=== PATIENT | male | born 1990 | race Caucasian/White ===

== ENCOUNTER 2016-08-12 05:26 | Day surgery (SDC) | payer BC, OTHER ==
[~2016-08-12] VITALS: Ht 185.4 cm; Wt 131.8 kg
[2016-08-12] MEDS ORDERED: ONDANSETRON 4MG/2ML VIAL (J2405) As Ordered ONE ×2 (06:16→15:29)
[2016-08-12] MEDS ORDERED: ZOSYN 3.375 GM VIAL (J2543) As Ordered ONE ×2 (06:16→06:17)
[2016-08-12] MEDS ORDERED: MORPHINE 4 MG/ML 1ML SYRINGE As Ordered ONE ×3 (06:16→08:34)
[2016-08-12] MEDS ORDERED: GASTROGRAFIN SOLUTION 30ML (Q9963) As Ordered ONE (06:18)
[2016-08-12 07:01] LABS: BASO # 0.2 K/mm3 (0.0-0.2); BASO % 1.6 % (0.0-1.0); EOS # 0.1 K/mm3 (0.0-0.50); EOS % 0.8 % (0.0-3.0); LARGE UNSTAINED CELL # 0.2 K/mm3 (0.0-0.4); LARGE UNSTAINED CELL % 1.7 % (0.0-4.0); LYMPH # 1.5 K/mm3 (1.5-6.5); LYMPH % 11.2 % (24.0-44.0); MEAN CORPUSCULAR HGB CONC 31.9 g/dl (32.0-36.5); MEAN CORPUSCULAR VOLUME 90.7 fl (80.0-96.0); MONO # 0.7 K/mm3 (0.0-0.8); MONO % 5.8 % (0.0-5.0); NEUTROPHILS # 9.2 K/mm3 (1.8-7.7); NEUTROPHILS % 78.9 % (36.0-66.0); PLATELET COUNT, AUTOMATED 223 k/mm3 (150-450); RED CELL DISTRIBUTION WIDTH 14.7 % (11.5-14.5); WHITE BLOOD COUNT 11.6 K/mm3 (4.0-10.0)
[2016-08-12] MEDS ORDERED: ISOVUE-370 76% 100ML VIAL (Q9967) As Ordered ONE (07:54)
[2016-08-12 08:45] LABS: ANION GAP 9 MEQ/L (8-16); BLOOD UREA NITROGEN 12 MG/DL (7-18); CARBON DIOXIDE LEVEL 27 MEQ/L (21-32); CHLORIDE LEVEL 102 MEQ/L (98-107); CREATININE FOR GFR 1.24 MG/DL (0.70-1.30); GLOMERULAR FILTRATION RATE > 60.0 (>60); GLUCOSE, FASTING 91 MG/DL (70-105); POTASSIUM SERUM 3.9 MEQ/L (3.5-5.1); SODIUM LEVEL 138 MEQ/L (136-145)
--- NOTE | 2016-08-12 09:12 | REP ---
CT ABDOMEN AND PELVIS WITH IV AND ORAL CONTRAST: HISTORY: Appendicitis. CT contrast dose: 100 mL of Isovue 370 is administered intravenously. Comparison study is a CT scan from April 22, 2008. 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 The lung bases are clear. No pleural effusion is seen. No infiltrate is noted. Liver and spleen are normal in size and homogeneous in texture. No adrenal lesion is seen on either side. The gallbladder and the pancreas are unremarkable. The kidneys enhance symmetrically and are morphologically intact. Normal caliber aorta. Tiny accessory splenule is seen adjacent to the tail of the pancreas. The appendix is abnormal. It is mildly dilated measuring 13 mm in diameter. It contains two or three concretions consistent with appendicoliths including one just beyond its origin from the cecum. There is mild periappendiceal stranding. No free air, abscess or fluid is seen. The changes are compatible with early acute appendicitis. The appendix measured 5 mm in diameter om the 2007 prior study. Urinary bladder, seminal vesicles and prostate are unremarkable. No abdominal wall defect is seen. No bony destructive lesion is seen. There is no evidence of free intraperitoneal air. IMPRESSION: Dilated retrocecal appendix containing two to three appendicoliths with mild periappendiceal stranding consistent with early acute appendicitis. No abscess or free air is seen. Mild ileus pattern in the bowel gas. Otherwise unremarkable CT study abdomen and pelvis. Signed by Rasheed Astudillo MD 08/12/2016 09:24 A
[2016-08-12] MEDS ORDERED: METOCLOPRAMIDE INJ 10MG/2ML VIAL (J2765) IV PRN (09:15)
[2016-08-12] MEDS ORDERED: ONDANSETRON 4MG/2ML VIAL (J2405) IV PRN ×2 (09:15→16:45)
[2016-08-12] MEDS ORDERED: KETOROLAC 30 MG/ML VIAL (J1885) IV PRN (09:15)
[2016-08-12] MEDS ORDERED: LR 1,000 ML IV SCH ×2 (09:15→16:45)
[2016-08-12] MEDS ORDERED: PANTOPRAZOLE 40MG INJ (PROTONIX) (C9113) As Ordered ONE (09:27)
[2016-08-12] MEDS ORDERED: MORPHINE 2 MG/ML 1ML SYRINGE As Ordered ONE (09:42)
[2016-08-12] MEDS ORDERED: KETOROLAC 30 MG/ML VIAL (J1885) As Ordered ONE (09:42)
--- NOTE | 2016-08-12 10:47 | EDDOCDS ---
Physician Documentation [facility] Name: Kai Valencia Age: 25 yrs Sex: Male : 1990 Arrival Date: 08/12/2016 Time: : Bed 11 Private MD: Disposition: 08/12/16 08:44 Hospitalization ordered by Sanjay Zhong for Inpatient Admission. Preliminary diagnosis is Acute appendicitis. - Bed requested for M PED. - Status is Inpatient Admission. kr3 - Condition is Stable. - Problem is new. - Symptoms are unchanged. HPI: 08/12 06:19 This 25 yrs old Male presents to ER via Walkin/Carried/Asstd with complaints pc of Abdominal Pain. 06:19 The history is obtained from the patient. The patient presents with abdominal pain. The pc symptoms began gradually yesterday, He had a loss of appetite yesterday but no other symptoms. He awoke at 1am with periumbilical pain and thought he needed to move his bowels. 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 He is nauseated. He denies any fevers or chills, Resp or symptoms. At its worst, the symptoms were a 7 out of 10. In the emergency department, the symptoms are a 7 out of 10. The symptoms are aggravated by movement, walking, coughing. The symptoms are alleviated by remaining still. The patient has not experienced similar symptoms in the past. The patient has not recently seen a physician. Historical: - Allergies: No known drug Allergies; - Home Meds: 1. none - PMHx: none; - PSHx: Left Shoulder Labrum Repair; - The history from nurses notes was reviewed: and elements of the historical information I have obtained differs from that reported to nursing. - Social history: Smoking status: Patient states was never smoker of tobacco. No barriers to communication noted, The patient speaks fluent Belgian, Speaks appropriately for age. - : The pt / caregiver states he / she is not on anticoagulants. Home medication list is obtained from the patient. - Hospitalizations: : No recent hospitalization is reported. - Exposure Risk Screening:: None identified. - Immunization history:: All immunizations up-to-date. - Family history: Not pertinent. - Social history:: the patient is a non-smoker, the patient drinks alcohol. ROS: 06:23 All systems are negative except if listed. The constitutional, cardiovascular, pc respiratory and neurological components are also addressed in the HPI. Exam: 06:23 General Appearance: alert, no acute distress. pc 06:23 ENT: ear, nose and throat normal, pharynx normal. 06:23 Neck: The exam reveals no acute abnormalities. ROM is normal and painless. No nuchal rigidity is noted.. 06:23 Respiratory: no respiratory distress, normal breath sounds. 06:23 Cardiovascular: regular pulse rate, regular heart rhythm, normal heart sounds, equal and full pulses bilaterally. 06:23 Abdomen: soft, severe tenderness in the right lower quadrant, with rebound, voluntary guarding is not appreciated, involuntary guarding is elicited in the right upper quadrant and right lower quadrant. 06:23 Back: normal inspection. 06:23 Skin: skin color is normal, warm, dry. 06:23 Extremities: The extremities have a grossly normal appearance, are non-tender, without acute ROM abnormalities. 06:23 Neuro: oriented x 3, cranial nerves normal as tested, no motor deficits, no sensory deficits. 06:23 Psych: mood is normal. Vital Signs: 05:31 BP 186 / 94 RA Sitting (auto/); Pulse 103; Resp 18 S; Temp 98.3(TE); Pulse Ox 99% on af2 R/A; Weight 131.54 kg / 290 lbs (R); Height 6 ft. 1 in. (185.42 cm) (R); Pain 7/10; 07:08 BP 144 / 78; Pulse 88; Resp 16; Temp 96.8(O); Pulse Ox 96% on R/A; Pain 5/10; kr3 09:48 BP 150 / 70; Pulse 94; Resp 16; Pulse Ox 96% on R/A; Pain 8/10; kr3 10:23 BP 162 / 74; Pulse 88; Resp 16; Temp 99.4(O); Pulse Ox 99% on R/A; Pain 0/10; kr3 10:23 Pain 0/10; kr3 05:31 Body Mass Index 38.26 (131.54 kg, 185.42 cm) af2 MDM: 06:08 IV Saline Lock ordered. pc 06:08 NS 0.9% 1000 ml IV at 100 mL/hr continuous ordered. pc 06:08 morphine 4 mg IVP every 30 minutes; Document pain score/vitals after each dose (Hold if pc SBP < 90mmHg) x2 ordered. 06:08 Ondansetron 4 mg IVP once ordered. pc 06:08 Piperacillin-Tazobactam 3.375 grams IVPB once over 30 mins; dilute in 50mL of NS or D5W pc ordered. 06:09 NOTHING BY MOUTH+DIET ordered. EDMS 06:10 CBC with Diff Ordered. EDMS 06:10 MED Profile Ordered. EDMS 06:10 CT ABD & PELVIS: IV and Oral Contrast Ordered. EDMS 06:23 Differential diagnosis: appendicitis, non-specific abd pain, mesenteric lymph adenitis. pc Plan: labs, meds, CT. 06:52 Financial registration complete. hs2 06:52 [facility] [place] was scanned into [employer] and attached to record. hs2 08:28 morphine 4 mg IVP every 30 minutes; Document pain score/vitals after each dose (Hold if sd1 SBP < 90mmHg) x2 ordered. 08:30 BED REQUEST+ADM ordered. EDMS 08:35 CBC with Diff Reviewed. sd1 08:36 NS 0.9% 1000 ml IV at 100 mL/hr continuous ordered. sd1 09:19 Admission Orders was scanned into [employer] and attached to record. deg 09:20 Admission / Observation Status ordered. EDMS 09:20 NPO DIET ordered. EDMS 09:50 LR Solution 1000 ml IV at 100 mL/hr continuous ordered. kr3 09:50 ketorolac 30 mg IVP once ordered. kr3 09:50 morphine 2 mg IVP once ordered. kr3 09:50 pantoprazole 40 mg IV at bolus once ordered. kr3 Administered Medications: 06:15 Drug: NS 0.9% 1000 ml [sodium chloride 0.9 % intravenous solution] Route: IV; Rate: 100 cf2 mL/hr; Site: left antecubital; 06:15 Drug: morphine 4 mg [morphine 4 mg/mL intravenous cartridge (1 mL)] Route: IVP; Site: cf2 left antecubital; 06:15 Drug: Ondansetron 4 mg [ondansetron HCl 2 mg/mL intravenous solution (2 mL)] Route: cf2 IVP; Site: left antecubital; 06:37 Drug: Piperacillin-Tazobactam 3.375 grams [piperacillin-tazobactam 3.375 gram cf2 intravenous solution] Route: IVPB; Infused Over: 30 mins; Site: left antecubital; 06:57 Drug: morphine 4 mg [morphine 4 mg/mL intravenous cartridge (1 mL)] Route: IVP; Site: cf2 left antecubital; 07:08 Follow up: BP 144 / 78; Pulse 88 bpm; Resp 16 bpm; Temp 96.8 Oral; Pulse Ox 96% RA; kr3 Pain 5/10 Adult; Response: Pain is decreased 08:39 Drug: morphine 4 mg [morphine 4 mg/mL intravenous cartridge (1 mL)] Route: IVP; Site: mcp right forearm; 09:48 Follow up: BP 150 / 70; Pulse 94 bpm; Resp 16 bpm; Pulse Ox 96% RA; Pain 8/10 Adult kr3 08:41 Drug: NS 0.9% 1000 ml [sodium chloride 0.9 % intravenous solution] Route: IV; Rate: 100 mcp mL/hr; Site: right forearm; 09:47 Follow up: IV Status: Infusion discontinued; IV Intake: 500ml kr3 09:40 Drug: pantoprazole 40 mg [pantoprazole 40 mg intravenous solution] Route: IV; Rate: kr3 bolus; Site: right antecubital; 10:23 Follow up: IV Status: Completed infusion kr3 09:45 Drug: LR 1000 ml [lactated ringers intravenous solution] Route: IV; Rate: 100 mL/hr; kr3 Site: right antecubital; 09:45 Drug: ketorolac 30 mg [ketorolac 30 mg/mL (1 mL) injection solution (1 mL)] Route: IVP; kr3 Site: right antecubital; 10:23 Follow up: Response: Pain is resolved kr3 09:47 Drug: morphine 2 mg [morphine 2 mg/mL intravenous cartridge (1 mL)] Route: IVP; Site: kr3 right antecubital; 10:23 Follow up: Pain 0/10 Adult; Response: Pain is resolved kr3 Signatures: Dispatcher [employer] Bo Parham MD MD pc Delaney-Rowland, Sarah, MD MD sd1 Sherrell Ponce, Drilling Manager Unit deg Esme Teague RN RN kr3 Amy Jessica RN RN af2 Gina Holman, Reg Reg hs2 Darrel Castle RN RN sa Peters, Mary RN mcp Familetti-Gonzalez, Christina RN cf2 The chart was reviewed and I authenticate all verbal orders and agree with the evaluation and treatment provided.Corrections: (The following items were deleted from the chart) 06:23 05:34 PSHx: Shoulder Arthroplasty, Left; af2 pc Attachments: 06:52 [facility] Payment Agreement hs2 09:19 Admission Orders deg MTDD
--- NOTE | 2016-08-12 10:47 | EDDOCDS ---
Nurse's Notes [facility] Name: Kai Valencia Age: 25 yrs Sex: Male : 1990 Arrival Date: 08/12/2016 Time: 05:26 Bed 11 Private MD: Diagnosis: Acute appendicitis Presentation: 08/12 05:32 Presenting complaint: Patient states: abdominal pain in umbilicus area, radiating to af2 right lower quadrant. reports nausea. Risk factors: the patient reports not having a history of previous torsion. Adult Sepsis Screening: The patient does not have new or worsening altered mentation. Patient's respiratory rate is less than 22. Systolic blood pressure is greater than 100. Patient has a qSOFA score of 0- Negative Sepsis Screen. Suicide/Homicide risk assessment- the patient denies having any suicidal and/or homicidal ideations and does not present with any other emotional, behavioral or mental health complaints. Status: Patient is not a emergency services professional or dependent. Transition of care: patient was not received from another setting of care. 05:32 Acuity: ESEQUIEL Level 3 af2 05:32 Method Of Arrival: Walkin/Carried/Asstd af2 Triage Assessment: 05:34 General: Appears in no apparent distress, Behavior is cooperative. Pain: Location: af2 abdomen Pain currently is 7 out of 10 on a pain scale. Pt Declines HIV testing. GI: Reports lower abdominal pain, nausea. Historical: - Allergies: No known drug Allergies; - Home Meds: 1. none - PMHx: none; - PSHx: Left Shoulder Labrum Repair; - The history from nurses notes was reviewed: and elements of the historical information I have obtained differs from that reported to nursing. - Social history: Smoking status: Patient states was never smoker of tobacco. No barriers to communication noted, The patient speaks fluent Maltese, Speaks appropriately for age. - : The pt / caregiver states he / she is not on anticoagulants. Home medication list is obtained from the patient. - Hospitalizations: : No recent hospitalization is reported. - Exposure Risk Screening:: None identified. - Immunization history:: All immunizations up-to-date. - Family history: Not pertinent. - Social history:: the patient is a non-smoker, the patient drinks alcohol. Screenin:38 Screening information is obtained from the patient. Fall risk: No risks identified. cf2 Assistance ADL's: requires no assistance with activities of daily living. Abuse/DV Screen: The patient / caregiver reports he/she is: not in a situation that causes fear, pain or injury. Nutritional screening: No deficits noted. Advance Directives: Further advance directive information is declined. home support is adequate. Assessment: 06:38 General: Appears distressed, ill, Behavior is restless. Pain: Location: abdomen. cf2 Neurological: No deficits noted. EENT: No deficits noted. Cardiovascular: No deficits noted. Respiratory: No deficits noted. GI: Abdomen is flat, non- distended Bowel sounds present X 4 quads. Abd is tender to palpation in right lower quadrant Guarding noted Reports diarrhea, nausea. : No deficits noted. Derm: No deficits noted. Musculoskeletal: No deficits noted. Injury Description: No known injury. 06:59 Reassessment: Patient states pain has decreased after second dose of pain medication. cf2 Patient continues to slowly drink contrast for IV contrast. Adult Sepsis Screening: The patient does not have new or worsening altered mentation. Patient's respiratory rate is less than 22. Systolic blood pressure is greater than 100. Patient has a qSOFA score of 0- Negative Sepsis Screen. 07:08 Reassessment: Patient states feeling better. Reassessment: tolerating CT contrast. kr3 Pain: Location: right lower quadrant Pain currently is 5 out of 10 on a pain scale. Quality of pain is described as annoying. Respiratory: Respiratory effort is even, unlabored. 08:15 Reassessment: Patient appears in no apparent distress at this time. Pain: Location: kr3 right lower quadrant Pain currently is 7 out of 10 on a pain scale. 09:00 Reassessment: Dr Zhong talking with patient, Patient aware surgery will take place kr3 this afternoon. 09:51 Reassessment: Patient appears in no apparent distress at this time. Pain: Location: kr3 right lower quadrant Pain currently is 8 out of 10 on a pain scale. Respiratory: Respiratory effort is even, unlabored. Derm: Skin is normal. 10:27 Reassessment: Patient appears in no apparent distress at this time. Patient denies pain kr3 at this time. reports had been able to sleep some since last pain med was given. Neurological: No deficits noted. Respiratory: Respiratory effort is even, unlabored. GI: Denies nausea. Derm: Skin is pink, warm & dry. Vital Signs: 05:31 BP 186 / 94 RA Sitting (auto/); Pulse 103; Resp 18 S; Temp 98.3(TE); Pulse Ox 99% on af2 R/A; Weight 131.54 kg (R); Height 6 ft. 1 in. (185.42 cm) (R); Pain 7/10; 07:08 BP 144 / 78; Pulse 88; Resp 16; Temp 96.8(O); Pulse Ox 96% on R/A; Pain 5/10; kr3 09:48 BP 150 / 70; Pulse 94; Resp 16; Pulse Ox 96% on R/A; Pain 8/10; kr3 10:23 BP 162 / 74; Pulse 88; Resp 16; Temp 99.4(O); Pulse Ox 99% on R/A; Pain 0/10; kr3 10:23 Pain 0/10; kr3 05:31 Body Mass Index 38.26 (131.54 kg, 185.42 cm) af2 Vitals: 05:31 Log In Time: August 12, 2016 at 05:26. af2 ED Course: 05:27 Patient visited by Irving Andersen Reg. pm4 05:27 Patient moved to Waiting pm4 05:33 Triage Initiated af2 05:35 Patient visited by Amy Jessica RN. af2 05:35 Patient moved to 11 af2 05:41 Kena Quan,ATTIANA is Primary Nurse. cf2 05:41 Patient visited by Kena Quan,TATIANA. cf2 05:41 Patient visited by Kena Quan,TATIANA. cf2 05:46 Bo Flores MD is Attending Physician. pc 06:09 Patient visited by Bo Flores MD. pc 06:37 Patient visited by Kena Quan,TATIANA. cf2 06:38 The patient / caregiver is instructed regarding the plan of care and ED course. Patient cf2 has correct armband on for positive identification. Placed in gown. Bed in low position. Call light in reach. Side rails up X 1. Side rails up X2. Door closed. Noise minimized. Visitors limited. Lights dimmed. Moved to private room. Verbal reassurance given. Warm blanket given. Pillow given. Head of bed elevated. Diet: Patient is NPO. 06:38 MED Profile Sent. cf2 06:38 CBC with Diff Sent. cf2 06:38 Inserted saline lock: 20 gauge in right antecubital area and blood collected. The cf2 patient tolerated the procedure well. No procedures done that require assistance. 06:52 [facility] Payment Agreement was scanned into MEDHOST and attached to record. hs2 06:56 Patient name changed from Kai\S\Sanjay\S\Vanelvine\S\ to Kai\S\Sanjay\S\Van Elvine. EDMS 06:56 Attending Physician role handed off by Bo Flores MD sd1 06:56 Tana Michael MD is Attending Physician. sd1 06:57 Patient visited by Kena Quan,TATIANA. cf2 06:58 Patient visited by Kena Quan,TATIANA. cf2 06:58 Patient visited by Kena Quan,TATIANA. cf2 08:11 Patient visited by Marie Green PCA. ct3 08:43 Sanjay Zhong is Hospitalizing Provider. sd1 09:19 Admission Orders was scanned into [employer] and attached to record. deg 10:26 Warm blanket given. kr3 Administered Medications: 06:15 Drug: NS 0.9% 1000 ml [sodium chloride 0.9 % intravenous solution] Route: IV; Rate: 100 cf2 mL/hr; Site: left antecubital; 06:15 Drug: morphine 4 mg [morphine 4 mg/mL intravenous cartridge (1 mL)] Route: IVP; Site: cf2 left antecubital; 06:15 Drug: Ondansetron 4 mg [ondansetron HCl 2 mg/mL intravenous solution (2 mL)] Route: cf2 IVP; Site: left antecubital; 06:37 Drug: Piperacillin-Tazobactam 3.375 grams [piperacillin-tazobactam 3.375 gram cf2 intravenous solution] Route: IVPB; Infused Over: 30 mins; Site: left antecubital; 06:57 Drug: morphine 4 mg [morphine 4 mg/mL intravenous cartridge (1 mL)] Route: IVP; Site: cf2 left antecubital; 07:08 Follow up: BP 144 / 78; Pulse 88 bpm; Resp 16 bpm; Temp 96.8 Oral; Pulse Ox 96% RA; kr3 Pain 5/10 Adult; Response: Pain is decreased 08:39 Drug: morphine 4 mg [morphine 4 mg/mL intravenous cartridge (1 mL)] Route: IVP; Site: [facility] right forearm; 09:48 Follow up: BP 150 / 70; Pulse 94 bpm; Resp 16 bpm; Pulse Ox 96% RA; Pain 8/10 Adult kr3 08:41 Drug: NS 0.9% 1000 ml [sodium chloride 0.9 % intravenous solution] Route: IV; Rate: 100 mcp mL/hr; Site: right forearm; 09:47 Follow up: IV Status: Infusion discontinued; IV Intake: 500ml kr3 09:40 Drug: pantoprazole 40 mg [pantoprazole 40 mg intravenous solution] Route: IV; Rate: kr3 bolus; Site: right antecubital; 10:23 Follow up: IV Status: Completed infusion kr3 09:45 Drug: LR 1000 ml [lactated ringers intravenous solution] Route: IV; Rate: 100 mL/hr; kr3 Site: right antecubital; 09:45 Drug: ketorolac 30 mg [ketorolac 30 mg/mL (1 mL) injection solution (1 mL)] Route: IVP; kr3 Site: right antecubital; 10:23 Follow up: Response: Pain is resolved kr3 09:47 Drug: morphine 2 mg [morphine 2 mg/mL intravenous cartridge (1 mL)] Route: IVP; Site: kr3 right antecubital; 10:23 Follow up: Pain 0/10 Adult; Response: Pain is resolved kr3 Intake: 09:47 IV: 500.00ml; Total: 500.00ml. kr3 Order Results: Lab Order: CBC with Diff; SPEC'M 08/12/16 06:33 Test: WHITE BLOOD COUNT; Value: 11.6; Range: 4.0-10.0; Abnormal: Above high normal; Units: K/mm3; Status: F Test: RED BLOOD COUNT; Value: 5.42; Range: 4.30-6.10; Units: M/mm3; Status: F Test: HEMOGLOBIN; Value: 15.7; Range: 14.0-18.0; Units: g/dl; Status: F Test: HEMATOCRIT; Value: 49.2; Range: 42.0-52.0; Units: %; Status: F Test: MEAN CORPUSCULAR VOLUME; Value: 90.7; Range: 80.0-96.0; Units: fl; Status: F Test: MEAN CORPUSCULAR HEMOGLOBIN; Value: 29.0; Range: 27.0-33.0; Units: pg; Status: F Test: MEAN CORPUSCULAR HGB CONC; Value: 31.9; Range: 32.0-36.5; Abnormal: Below low normal; Units: g/dl; Status: F Test: RED CELL DISTRIBUTION WIDTH; Value: 14.7; Range: 11.5-14.5; Abnormal: Above high normal; Units: %; Status: F Test: PLATELET COUNT, AUTOMATED; Value: 223; Range: 150-450; Units: k/mm3; Status: F Test: NEUTROPHILS %; Value: 78.9; Range: 36.0-66.0; Abnormal: Above high normal; Units: %; Status: F Test: LYMPH %; Value: 11.2; Range: 24.0-44.0; Abnormal: Below low normal; Units: %; Status: F Test: MONO %; Value: 5.8; Range: 0.0-5.0; Abnormal: Above high normal; Units: %; Status: F Test: EOS %; Value: 0.8; Range: 0.0-3.0; Units: %; Status: F Test: BASO %; Value: 1.6; Range: 0.0-1.0; Abnormal: Above high normal; Units: %; Status: F Test: LARGE UNSTAINED CELL %; Value: 1.7; Range: 0.0-4.0; Units: %; Status: F Test: NEUTROPHILS #; Value: 9.2; Range: 1.8-7.7; Abnormal: Above high normal; Units: K/mm3; Status: F Test: LYMPH #; Value: 1.5; Range: 1.5-6.5; Units: K/mm3; Status: F Test: MONO #; Value: 0.7; Range: 0.0-0.8; Units: K/mm3; Status: F Test: EOS #; Value: 0.1; Range: 0.0-0.50; Units: K/mm3; Status: F Test: BASO #; Value: 0.2; Range: 0.0-0.2; Units: K/mm3; Status: F Test: LARGE UNSTAINED CELL #; Value: 0.2; Range: 0.0-0.4; Units: K/mm3; Status: F Lab Order: MED Profile; HARDIK 08/12/16 08:18 Test: GLUCOSE, FASTING; Value: 91; Range: 70-105; Units: MG/DL; Status: F Test: BLOOD UREA NITROGEN; Value: 12; Range: 7-18; Units: MG/DL; Status: F Test: CREATININE FOR GFR; Value: 1.24; Range: 0.70-1.30; Units: MG/DL; Status: F Test: GLOMERULAR FILTRATION RATE; Value: > 60.0; Range: >60; Status: F Test: SODIUM LEVEL; Value: 138; Range: 136-145; Units: MEQ/L; Status: F Test: POTASSIUM SERUM; Value: 3.9; Range: 3.5-5.1; Units: MEQ/L; Status: F Test: CHLORIDE LEVEL; Value: 102; Range: 98-107; Units: MEQ/L; Status: F Test: CARBON DIOXIDE LEVEL; Value: 27; Range: 21-32; Units: MEQ/L; Status: F Test: ANION GAP; Value: 9; Range: 8-16; Units: MEQ/L; Status: F Test: CALCIUM LEVEL; Value: 9.0; Range: 8.5-10.1; Units: MG/DL; Status: F Test Note: ; Units are mL/min/1.73 m2 Chronic Kidney Disease Staging per NKF: Stage I & II GFR >=60 Normal to Mildly Decreased Stage III GFR 30-59 Moderately Decreased Stage IV GFR 15-29 Severely Decreased Stage V GFR <15 Very Little GFR Left ESRD GFR <15 on FISH ICER Outcome: 08:16 CT Study completed. kr3 08:44 Decision to Hospitalize by Provider. sd1 10:26 Admission hand-off: Report called to Siri SIMPSON on Peds. kr3 10:27 Discharge Assessment: patient administered narcotics - yes. Patient was admitted to the [address] or transferred to another facility. The following High Risk Discharge criteria are identified: None. Admitted to Pediatrics accompanied by tech, family with patient, via stretcher, with chart. Condition: stable. Property sent home with patient. 10:45 Patient left the ED. kr3 Signatures: Dispatcher [employer] EDBo Neal MD MD pc Delaney-Rowland, Sarah, MD MD sd1 Sherrell Ponce, Auto Appraiser Unit deg Myrna Del Valle, RN RN mcp Esme Teague RN RN kr3 Marie Green, MEDICAL CSR MEDICAL CSR ct3 Amy Jessica RN RN af2 Gina Holman, Reg Reg hs2 Kena Quan RN RN cf2 Irving Andersen, Reg Reg pm4 Corrections: (The following items were deleted from the chart) 06:23 05:34 PSHx: Shoulder Arthroplasty, Left; af2 pc MTDD
[2016-08-12 11:00] VITALS: BP 136/86
[2016-08-12] MEDS: MORPHINE 2 MG/ML 1ML SYRINGE IV PRN ×3 (11:32→14:33)
[2016-08-12] MEDS ORDERED: PIPERACILLIN/TAZOBACTAM SOD 3.375 GM in D5W MINI-BAG PLUS 50 ML IV SCH (12:00)
[2016-08-12] MEDS ORDERED: PROPOFOL 200 MG/20 ML VIAL As Ordered ONE (14:29)
[2016-08-12] MEDS ORDERED: ROCURONIUM BROMIDE 50 MG/5 ML VIAL As Ordered ONE (14:29)
[2016-08-12] MEDS ORDERED: fentaNYL 100 MCG/2 ML INJECTION (J3010) As Ordered ONE ×2 (14:29→15:29)
[2016-08-12] MEDS ORDERED: MIDAZOLAM INJ 2 MG/2 ML VIAL (J2250) As Ordered ONE (14:29)
[2016-08-12] MEDS ORDERED: LIDOCAINE 2% INJ 100 MG/5 ML SDV (FOR ANES.) As Ordered ONE (14:29)
[2016-08-12] MEDS ORDERED: BUPIVACAINE HCL 0.25% 30 ML VIAL As Ordered ONE (14:33)
[2016-08-12] MEDS ORDERED: SUCCINYLCHOLINE 100 MG/5 ML SYRINGE (J0330) As Ordered ONE ×2 (14:54)
[2016-08-12] MEDS ORDERED: KETOROLAC 60 MG/2 ML VIAL (J1885) As Ordered ONE (15:29)
[2016-08-12] MEDS ORDERED: NEOSTIGMINE 1MG/ML 5 ML SYRINGE (J2710) As Ordered ONE (15:30)
[2016-08-12] MEDS ORDERED: GLYCOPYRROLATE INJ 0.2 MG/ML 2 ML VIAL As Ordered ONE ×2 (15:30)
[2016-08-12] MEDS ORDERED: BUPIVACAINE HCL 0.25% 30 ML VIAL XX ONE (15:48)
[2016-08-12 16:45] VITALS: BP 134/58
[2016-08-12] MEDS ORDERED: fentaNYL 100 MCG/2 ML INJECTION (J3010) IV PRN (16:45)
[2016-08-12] MEDS ORDERED: ACETAMINOPHEN TAB 650MG DOSE (2X325MG) PO PRN (16:45)
[2016-08-12] MEDS ORDERED: NORCO, ANEXSIA 5/325MG TABLET (HYDROcodone/ACETAMINOPHEN) PO PRN ×2 (16:45)
[2016-08-12 17:15] VITALS: BP 135/60
[2016-08-12 17:45] VITALS: BP 132/64
[2016-08-12 18:45] VITALS: BP 128/58
[2016-08-12] MEDS ORDERED: NORCOTAB PO (18:54)
[2016-08-12] MEDS ORDERED: PIPERACILLIN/TAZOBACTAM SOD 3.375 GM in D5W MINI-BAG PLUS 50 ML IV ONE (19:00)
[2016-08-12 20:00] VITALS: BP 135/63
--- NOTE | 2016-08-13 00:09 | RO ---
DATE OF PROCEDURE: 08/12/2016 PREOPERATIVE DIAGNOSIS: Appendicitis. POSTOPERATIVE DIAGNOSIS: Acute appendicitis. PROCEDURE PERFORMED: Laparoscopic appendectomy. SURGEON: Dr. Sanjay Zhong JEWEL DIAMETER GAUGER: EVAN Castro ANESTHESIA: General. INDICATIONS FOR PROCEDURE: The patient is a 25-year-old man who was awakened at about 1 o'clock in the morning on 08/12/2016 by abdominal pain. He noted persistent and progressive right lateral abdominal pain. He presented to the emergency department. Evaluation including a CT scan was consistent with acute appendicitis, and he is now for a laparoscopic appendectomy. DESCRIPTION OF PROCEDURE: The patient was placed under general endotracheal anesthesia. The patient's abdomen was prepped and draped in a sterile fashion. 0.25% Marcaine was utilized. A short supraumbilical midline incision was made. This was deepened through the fascia and the peritoneum was opened and a Daysi cannula placed. The abdomen was insufflated with carbon dioxide gas. Initial examination showed normal appearing small and large bowel. The patient was tilted to a Trendelenburg position and rolled slightly to the left. Lateral to the cecum, a small amount of inflammatory debris was identified. A 5 mm trocar was placed low in the midline and a second 5 mm trocar in the left lower quadrant. Graspers were inserted. The cecum was rolled medially. The tip of the inflamed appendix was identified just lateral to the cecum. The appendix was partially retroperitoneal, curling posterior to the cecum and then coming back more anteriorly to the base of the appendix. The mesoappendix was grasped. The tissues lateral to the cecum were opened using the cautery to free the appendix from its retroperitoneal location. This dissection proceeded freeing the appendix from the retroperitoneum back toward the appendiceal base. As the appendix was better exposed, the mesoappendix was divided at its base using the hook cautery. A small artery was identified and this was securely cauterized. Once the base of the appendix was cleared, the base was stapled with a linear cutter 35 stapler with a blue load. This was stapled flush with the junction with the cecum. The appendix was placed in an Endopouch. The operative area was irrigated with saline and inspected. There was no evidence of bleeding. The patient was returned to a flat position and any remaining irrigation was removed. The abdomen was deflated and the trocars were removed. The appendix was recovered through the Daysi site. The fascia at the Daysi site was closed with #2-0 Vicryl. The skin incisions were all closed with buried #5-0 Vicryl and Steri-Strips. Light dressings were applied. The patient tolerated the procedure well without apparent complication. He was awakened in the operating room, extubated and moved to the recovery room in stable condition.
--- NOTE | 2016-08-14 11:47 | EDDOCDS ---
Physician Documentation [facility] Name: Kai Valencia Age: 25 yrs Sex: Male : 1990 Arrival Date: 08/12/2016 Time: : Bed 11 Private MD: Disposition: 08/12/16 08:44 Hospitalization ordered by Sanjay Zhong for Inpatient Admission. Preliminary diagnosis is Acute appendicitis. - Bed requested for M PED. - Status is Inpatient Admission. kr3 - Condition is Stable. - Problem is new. - Symptoms are unchanged. HPI: 08/12 06:19 This 25 yrs old Male presents to ER via Walkin/Carried/Asstd with complaints pc of Abdominal Pain. 06:19 The history is obtained from the patient. The patient presents with abdominal pain. The pc symptoms began gradually yesterday, He had a loss of appetite yesterday but no other symptoms. He awoke at 1am with periumbilical pain and thought he needed to move his bowels. The pain began to radiate towards his RLQ and become more intense just FRAME STYLIST. He is nauseated. He denies any fevers or chills, Resp or symptoms. At its worst, the symptoms were a 7 out of 10. In the emergency department, the symptoms are a 7 out of 10. The symptoms are aggravated by movement, walking, coughing. The symptoms are alleviated by remaining still. The patient has not experienced similar symptoms in the past. The patient has not recently seen a physician. Historical: - Allergies: No known drug Allergies; - Home Meds: 1. none - PMHx: none; - PSHx: Left Shoulder Labrum Repair; - The history from nurses notes was reviewed: and elements of the historical information I have obtained differs from that reported to nursing. - Social history: Smoking status: Patient states was never smoker of tobacco. No barriers to communication noted, The patient speaks fluent Rwandan, Speaks appropriately for age. - : The pt / caregiver states he / she is not on anticoagulants. Home medication list is obtained from the patient. - Hospitalizations: : No recent hospitalization is reported. - Exposure Risk Screening:: None identified. - Immunization history:: All immunizations up-to-date. - Family history: Not pertinent. - Social history:: the patient is a non-smoker, the patient drinks alcohol. ROS: 06:23 All systems are negative except if listed. The constitutional, cardiovascular, pc respiratory and neurological components are also addressed in the HPI. Exam: 06:23 General Appearance: alert, no acute distress. pc 06:23 ENT: ear, nose and throat normal, pharynx normal. 06:23 Neck: The exam reveals no acute abnormalities. ROM is normal and painless. No nuchal rigidity is noted.. 06:23 Respiratory: no respiratory distress, normal breath sounds. 06:23 Cardiovascular: regular pulse rate, regular heart rhythm, normal heart sounds, equal and full pulses bilaterally. 06:23 Abdomen: soft, severe tenderness in the right lower quadrant, with rebound, voluntary guarding is not appreciated, involuntary guarding is elicited in the right upper quadrant and right lower quadrant. 06:23 Back: normal inspection. 06:23 Skin: skin color is normal, warm, dry. 06:23 Extremities: The extremities have a grossly normal appearance, are non-tender, without acute ROM abnormalities. 06:23 Neuro: oriented x 3, cranial nerves normal as tested, no motor deficits, no sensory deficits. 06:23 Psych: mood is normal. Vital Signs: 05:31 BP 186 / 94 RA Sitting (auto/); Pulse 103; Resp 18 S; Temp 98.3(TE); Pulse Ox 99% on af2 R/A; Weight 131.54 kg / 290 lbs (R); Height 6 ft. 1 in. (185.42 cm) (R); Pain 7/10; 07:08 BP 144 / 78; Pulse 88; Resp 16; Temp 96.8(O); Pulse Ox 96% on R/A; Pain 5/10; kr3 09:48 BP 150 / 70; Pulse 94; Resp 16; Pulse Ox 96% on R/A; Pain 8/10; kr3 10:23 BP 162 / 74; Pulse 88; Resp 16; Temp 99.4(O); Pulse Ox 99% on R/A; Pain 0/10; kr3 10:23 Pain 0/10; kr3 05:31 Body Mass Index 38.26 (131.54 kg, 185.42 cm) af2 MDM: 06:08 IV Saline Lock ordered. pc 06:08 NS 0.9% 1000 ml IV at 100 mL/hr continuous ordered. pc 06:08 morphine 4 mg IVP every 30 minutes; Document pain score/vitals after each dose (Hold if pc SBP < 90mmHg) x2 ordered. 06:08 Ondansetron 4 mg IVP once ordered. pc 06:08 Piperacillin-Tazobactam 3.375 grams IVPB once over 30 mins; dilute in 50mL of NS or D5W pc ordered. 06:09 NOTHING BY MOUTH+DIET ordered. EDMS 06:10 CBC with Diff Ordered. EDMS 06:10 MED Profile Ordered. EDMS 06:10 CT ABD & PELVIS: IV and Oral Contrast Ordered. EDMS 06:23 Differential diagnosis: appendicitis, non-specific abd pain, mesenteric lymph adenitis. pc Plan: labs, meds, CT. 06:52 Financial registration complete. hs2 06:52 [facility] Payment Agreement was scanned into [employer] and attached to record. hs2 08:28 morphine 4 mg IVP every 30 minutes; Document pain score/vitals after each dose (Hold if sd1 SBP < 90mmHg) x2 ordered. 08:30 BED REQUEST+ADM ordered. EDMS 08:35 CBC with Diff Reviewed. sd1 08:36 NS 0.9% 1000 ml IV at 100 mL/hr continuous ordered. sd1 09:19 Admission Orders was scanned into [employer] and attached to record. deg 09:20 Admission / Observation Status ordered. EDMS 09:20 NPO DIET ordered. EDMS 09:50 LR Solution 1000 ml IV at 100 mL/hr continuous ordered. kr3 09:50 ketorolac 30 mg IVP once ordered. kr3 09:50 morphine 2 mg IVP once ordered. kr3 09:50 pantoprazole 40 mg IV at bolus once ordered. kr3 Administered Medications: 06:15 Drug: NS 0.9% 1000 ml [sodium chloride 0.9 % intravenous solution] Route: IV; Rate: 100 cf2 mL/hr; Site: left antecubital; 06:15 Drug: morphine 4 mg [morphine 4 mg/mL intravenous cartridge (1 mL)] Route: IVP; Site: cf2 left antecubital; 06:15 Drug: Ondansetron 4 mg [ondansetron HCl 2 mg/mL intravenous solution (2 mL)] Route: cf2 IVP; Site: left antecubital; 06:37 Drug: Piperacillin-Tazobactam 3.375 grams [piperacillin-tazobactam 3.375 gram cf2 intravenous solution] Route: IVPB; Infused Over: 30 mins; Site: left antecubital; 06:57 Drug: morphine 4 mg [morphine 4 mg/mL intravenous cartridge (1 mL)] Route: IVP; Site: cf2 left antecubital; 07:08 Follow up: BP 144 / 78; Pulse 88 bpm; Resp 16 bpm; Temp 96.8 Oral; Pulse Ox 96% RA; kr3 Pain 5/10 Adult; Response: Pain is decreased 08:39 Drug: morphine 4 mg [morphine 4 mg/mL intravenous cartridge (1 mL)] Route: IVP; Site: mcp right forearm; 09:48 Follow up: BP 150 / 70; Pulse 94 bpm; Resp 16 bpm; Pulse Ox 96% RA; Pain 8/10 Adult kr3 08:41 Drug: NS 0.9% 1000 ml [sodium chloride 0.9 % intravenous solution] Route: IV; Rate: 100 mcp mL/hr; Site: right forearm; 09:47 Follow up: IV Status: Infusion discontinued; IV Intake: 500ml kr3 09:40 Drug: pantoprazole 40 mg [pantoprazole 40 mg intravenous solution] Route: IV; Rate: kr3 bolus; Site: right antecubital; 10:23 Follow up: IV Status: Completed infusion kr3 09:45 Drug: LR 1000 ml [lactated ringers intravenous solution] Route: IV; Rate: 100 mL/hr; kr3 Site: right antecubital; 09:45 Drug: ketorolac 30 mg [ketorolac 30 mg/mL (1 mL) injection solution (1 mL)] Route: IVP; kr3 Site: right antecubital; 10:23 Follow up: Response: Pain is resolved kr3 09:47 Drug: morphine 2 mg [morphine 2 mg/mL intravenous cartridge (1 mL)] Route: IVP; Site: kr3 right antecubital; 10:23 Follow up: Pain 0/10 Adult; Response: Pain is resolved kr3 Signatures: Dispatcher [employer] Bo Parham MD MD pc Delaney-Rowland, Sarah, MD MD sd1 Sherrell Ponce, [employer] deg Esme Teague RN RN kr3 Amy Jessica RN RN af2 Gina Holman, Reg Reg hs2 Darrel Castle RN RN sa Peters, Mary RN mcp Familetti-Gonzalez, Christina RN cf2 The chart was reviewed and I authenticate all verbal orders and agree with the evaluation and treatment provided.Corrections: (The following items were deleted from the chart) 06:23 05:34 PSHx: Shoulder Arthroplasty, Left; af2 pc Attachments: 06:52 [facility] Payment Agreement hs2 09:19 Admission Orders deg Chart Complete MTDD
--- NOTE | 2016-08-14 11:47 | EDDOCDS ---
Physician Documentation [facility] Name: Kai Valencia Age: 25 yrs Sex: Male : 1990 Arrival Date: 08/12/2016 Time: : Bed 11 Private MD: Disposition: 08/12/16 08:44 Hospitalization ordered by Sanjay Zhong for Inpatient Admission. Preliminary diagnosis is Acute appendicitis. - Bed requested for M PED. - Status is Inpatient Admission. kr3 - Condition is Stable. - Problem is new. - Symptoms are unchanged. HPI: 08/12 06:19 This 25 yrs old Male presents to ER via Walkin/Carried/Asstd with complaints pc of Abdominal Pain. 06:19 The history is obtained from the patient. The patient presents with abdominal pain. The pc symptoms began gradually yesterday, He had a loss of appetite yesterday but no other symptoms. He awoke at 1am with periumbilical pain and thought he needed to move his bowels. The pain began to radiate towards his RLQ and become more intense just TREE CUTTER. He is nauseated. He denies any fevers or chills, Resp or symptoms. At its worst, the symptoms were a 7 out of 10. In the emergency department, the symptoms are a 7 out of 10. The symptoms are aggravated by movement, walking, coughing. The symptoms are alleviated by remaining still. The patient has not experienced similar symptoms in the past. The patient has not recently seen a physician. Historical: - Allergies: No known drug Allergies; - Home Meds: 1. none - PMHx: none; - PSHx: Left Shoulder Labrum Repair; - The history from nurses notes was reviewed: and elements of the historical information I have obtained differs from that reported to nursing. - Social history: Smoking status: Patient states was never smoker of tobacco. No barriers to communication noted, The patient speaks fluent Norwegian, Speaks appropriately for age. - : The pt / caregiver states he / she is not on anticoagulants. Home medication list is obtained from the patient. - Hospitalizations: : No recent hospitalization is reported. - Exposure Risk Screening:: None identified. - Immunization history:: All immunizations up-to-date. - Family history: Not pertinent. - Social history:: the patient is a non-smoker, the patient drinks alcohol. ROS: 06:23 All systems are negative except if listed. The constitutional, cardiovascular, pc respiratory and neurological components are also addressed in the HPI. Exam: 06:23 General Appearance: alert, no acute distress. pc 06:23 ENT: ear, nose and throat normal, pharynx normal. 06:23 Neck: The exam reveals no acute abnormalities. ROM is normal and painless. No nuchal rigidity is noted.. 06:23 Respiratory: no respiratory distress, normal breath sounds. 06:23 Cardiovascular: regular pulse rate, regular heart rhythm, normal heart sounds, equal and full pulses bilaterally. 06:23 Abdomen: soft, severe tenderness in the right lower quadrant, with rebound, voluntary guarding is not appreciated, involuntary guarding is elicited in the right upper quadrant and right lower quadrant. 06:23 Back: normal inspection. 06:23 Skin: skin color is normal, warm, dry. 06:23 Extremities: The extremities have a grossly normal appearance, are non-tender, without acute ROM abnormalities. 06:23 Neuro: oriented x 3, cranial nerves normal as tested, no motor deficits, no sensory deficits. 06:23 Psych: mood is normal. Vital Signs: 05:31 BP 186 / 94 RA Sitting (auto/); Pulse 103; Resp 18 S; Temp 98.3(TE); Pulse Ox 99% on af2 R/A; Weight 131.54 kg / 290 lbs (R); Height 6 ft. 1 in. (185.42 cm) (R); Pain 7/10; 07:08 BP 144 / 78; Pulse 88; Resp 16; Temp 96.8(O); Pulse Ox 96% on R/A; Pain 5/10; kr3 09:48 BP 150 / 70; Pulse 94; Resp 16; Pulse Ox 96% on R/A; Pain 8/10; kr3 10:23 BP 162 / 74; Pulse 88; Resp 16; Temp 99.4(O); Pulse Ox 99% on R/A; Pain 0/10; kr3 10:23 Pain 0/10; kr3 05:31 Body Mass Index 38.26 (131.54 kg, 185.42 cm) af2 MDM: 06:08 IV Saline Lock ordered. pc 06:08 NS 0.9% 1000 ml IV at 100 mL/hr continuous ordered. pc 06:08 morphine 4 mg IVP every 30 minutes; Document pain score/vitals after each dose (Hold if pc SBP < 90mmHg) x2 ordered. 06:08 Ondansetron 4 mg IVP once ordered. pc 06:08 Piperacillin-Tazobactam 3.375 grams IVPB once over 30 mins; dilute in 50mL of NS or D5W pc ordered. 06:09 NOTHING BY MOUTH+DIET ordered. EDMS 06:10 CBC with Diff Ordered. EDMS 06:10 MED Profile Ordered. EDMS 06:10 CT ABD & PELVIS: IV and Oral Contrast Ordered. EDMS 06:23 Differential diagnosis: appendicitis, non-specific abd pain, mesenteric lymph adenitis. pc Plan: labs, meds, CT. 06:52 Financial registration complete. hs2 06:52 [facility] Payment Agreement was scanned into [employer] and attached to record. hs2 08:28 morphine 4 mg IVP every 30 minutes; Document pain score/vitals after each dose (Hold if sd1 SBP < 90mmHg) x2 ordered. 08:30 BED REQUEST+ADM ordered. EDMS 08:35 CBC with Diff Reviewed. sd1 08:36 NS 0.9% 1000 ml IV at 100 mL/hr continuous ordered. sd1 09:19 Admission Orders was scanned into [employer] and attached to record. deg 09:20 Admission / Observation Status ordered. EDMS 09:20 NPO DIET ordered. EDMS 09:50 LR Solution 1000 ml IV at 100 mL/hr continuous ordered. kr3 09:50 ketorolac 30 mg IVP once ordered. kr3 09:50 morphine 2 mg IVP once ordered. kr3 09:50 pantoprazole 40 mg IV at bolus once ordered. kr3 Administered Medications: 06:15 Drug: NS 0.9% 1000 ml [sodium chloride 0.9 % intravenous solution] Route: IV; Rate: 100 cf2 mL/hr; Site: left antecubital; 06:15 Drug: morphine 4 mg [morphine 4 mg/mL intravenous cartridge (1 mL)] Route: IVP; Site: cf2 left antecubital; 06:15 Drug: Ondansetron 4 mg [ondansetron HCl 2 mg/mL intravenous solution (2 mL)] Route: cf2 IVP; Site: left antecubital; 06:37 Drug: Piperacillin-Tazobactam 3.375 grams [piperacillin-tazobactam 3.375 gram cf2 intravenous solution] Route: IVPB; Infused Over: 30 mins; Site: left antecubital; 06:57 Drug: morphine 4 mg [morphine 4 mg/mL intravenous cartridge (1 mL)] Route: IVP; Site: cf2 left antecubital; 07:08 Follow up: BP 144 / 78; Pulse 88 bpm; Resp 16 bpm; Temp 96.8 Oral; Pulse Ox 96% RA; kr3 Pain 5/10 Adult; Response: Pain is decreased 08:39 Drug: morphine 4 mg [morphine 4 mg/mL intravenous cartridge (1 mL)] Route: IVP; Site: mcp right forearm; 09:48 Follow up: BP 150 / 70; Pulse 94 bpm; Resp 16 bpm; Pulse Ox 96% RA; Pain 8/10 Adult kr3 08:41 Drug: NS 0.9% 1000 ml [sodium chloride 0.9 % intravenous solution] Route: IV; Rate: 100 mcp mL/hr; Site: right forearm; 09:47 Follow up: IV Status: Infusion discontinued; IV Intake: 500ml kr3 09:40 Drug: pantoprazole 40 mg [pantoprazole 40 mg intravenous solution] Route: IV; Rate: kr3 bolus; Site: right antecubital; 10:23 Follow up: IV Status: Completed infusion kr3 09:45 Drug: LR 1000 ml [lactated ringers intravenous solution] Route: IV; Rate: 100 mL/hr; kr3 Site: right antecubital; 09:45 Drug: ketorolac 30 mg [ketorolac 30 mg/mL (1 mL) injection solution (1 mL)] Route: IVP; kr3 Site: right antecubital; 10:23 Follow up: Response: Pain is resolved kr3 09:47 Drug: morphine 2 mg [morphine 2 mg/mL intravenous cartridge (1 mL)] Route: IVP; Site: kr3 right antecubital; 10:23 Follow up: Pain 0/10 Adult; Response: Pain is resolved kr3 Signatures: Dispatcher [employer] Bo Parham MD MD pc Delaney-Rowland, Sarah, MD MD sd1 Sherrell Ponce, [employer] deg Esme Teague RN RN kr3 Amy Jessica RN RN af2 Gina Holman, Reg Reg hs2 Darrel Castle RN RN sa Peters, Mary RN mcp Familetti-Gonzalez, Christina RN cf2 The chart was reviewed and I authenticate all verbal orders and agree with the evaluation and treatment provided.Corrections: (The following items were deleted from the chart) 06:23 05:34 PSHx: Shoulder Arthroplasty, Left; af2 pc Attachments: 06:52 [facility] Payment Agreement hs2 09:19 Admission Orders deg Chart Complete MTDD
--- NOTE | 2016-08-14 11:47 | EDDOCDS ---
Nurse's Notes [facility] Name: Kai Valencia Age: 25 yrs Sex: Male : 1990 Arrival Date: 08/12/2016 Time: 05:26 Bed 11 Private MD: Diagnosis: Acute appendicitis Presentation: 08/12 05:32 Presenting complaint: Patient states: abdominal pain in umbilicus area, radiating to af2 right lower quadrant. reports nausea. Risk factors: the patient reports not having a history of previous torsion. Adult Sepsis Screening: The patient does not have new or worsening altered mentation. Patient's respiratory rate is less than 22. Systolic blood pressure is greater than 100. Patient has a qSOFA score of 0- Negative Sepsis Screen. Suicide/Homicide risk assessment- the patient denies having any suicidal and/or homicidal ideations and does not present with any other emotional, behavioral or mental health complaints. 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 Transition of care: patient was not received from another setting of care. 05:32 Acuity: ESEQUIEL Level 3 af2 05:32 Method Of Arrival: Walkin/Carried/Asstd af2 Triage Assessment: 05:34 General: Appears in no apparent distress, Behavior is cooperative. Pain: Location: af2 abdomen Pain currently is 7 out of 10 on a pain scale. Pt Declines HIV testing. GI: Reports lower abdominal pain, nausea. Historical: - Allergies: No known drug Allergies; - Home Meds: 1. none - PMHx: none; - PSHx: Left Shoulder Labrum Repair; - The history from nurses notes was reviewed: and elements of the historical information I have obtained differs from that reported to nursing. - Social history: Smoking status: Patient states was never smoker of tobacco. No barriers to communication noted, The patient speaks fluent Yi, Speaks appropriately for age. - : The pt / caregiver states he / she is not on anticoagulants. Home medication list is obtained from the patient. - Hospitalizations: : No recent hospitalization is reported. - Exposure Risk Screening:: None identified. - Immunization history:: All immunizations up-to-date. - Family history: Not pertinent. - Social history:: the patient is a non-smoker, the patient drinks alcohol. Screenin:38 Screening information is obtained from the patient. Fall risk: No risks identified. cf2 Assistance ADL's: requires no assistance with activities of daily living. Abuse/DV Screen: The patient / caregiver reports he/she is: not in a situation that causes fear, pain or injury. Nutritional screening: No deficits noted. Advance Directives: Further advance directive information is declined. home support is adequate. Assessment: 06:38 General: Appears distressed, ill, Behavior is restless. Pain: Location: abdomen. cf2 Neurological: No deficits noted. EENT: No deficits noted. Cardiovascular: No deficits noted. Respiratory: No deficits noted. GI: Abdomen is flat, non- distended Bowel sounds present X 4 quads. Abd is tender to palpation in right lower quadrant Guarding noted Reports diarrhea, nausea. : No deficits noted. Derm: No deficits noted. Musculoskeletal: No deficits noted. Injury Description: No known injury. 06:59 Reassessment: Patient states pain has decreased after second dose of pain medication. cf2 Patient continues to slowly drink contrast for IV contrast. Adult Sepsis Screening: The patient does not have new or worsening altered mentation. Patient's respiratory rate is less than 22. Systolic blood pressure is greater than 100. Patient has a qSOFA score of 0- Negative Sepsis Screen. 07:08 Reassessment: Patient states feeling better. Reassessment: tolerating CT contrast. kr3 Pain: Location: right lower quadrant Pain currently is 5 out of 10 on a pain scale. Quality of pain is described as annoying. Respiratory: Respiratory effort is even, unlabored. 08:15 Reassessment: Patient appears in no apparent distress at this time. Pain: Location: kr3 right lower quadrant Pain currently is 7 out of 10 on a pain scale. 09:00 Reassessment: Dr Zhong talking with patient, Patient aware surgery will take place kr3 this afternoon. 09:51 Reassessment: Patient appears in no apparent distress at this time. Pain: Location: kr3 right lower quadrant Pain currently is 8 out of 10 on a pain scale. Respiratory: Respiratory effort is even, unlabored. Derm: Skin is normal. 10:27 Reassessment: Patient appears in no apparent distress at this time. Patient denies pain kr3 at this time. reports had been able to sleep some since last pain med was given. Neurological: No deficits noted. Respiratory: Respiratory effort is even, unlabored. GI: Denies nausea. Derm: Skin is pink, warm & dry. Vital Signs: 05:31 BP 186 / 94 RA Sitting (auto/); Pulse 103; Resp 18 S; Temp 98.3(TE); Pulse Ox 99% on af2 R/A; Weight 131.54 kg (R); Height 6 ft. 1 in. (185.42 cm) (R); Pain 7/10; 07:08 BP 144 / 78; Pulse 88; Resp 16; Temp 96.8(O); Pulse Ox 96% on R/A; Pain 5/10; kr3 09:48 BP 150 / 70; Pulse 94; Resp 16; Pulse Ox 96% on R/A; Pain 8/10; kr3 10:23 BP 162 / 74; Pulse 88; Resp 16; Temp 99.4(O); Pulse Ox 99% on R/A; Pain 0/10; kr3 10:23 Pain 0/10; kr3 05:31 Body Mass Index 38.26 (131.54 kg, 185.42 cm) af2 Vitals: 05:31 Log In Time: August 12, 2016 at 05:26. af2 ED Course: 05:27 Patient visited by Irving Andersen Reg. pm4 05:27 Patient moved to Waiting pm4 05:33 Triage Initiated af2 05:35 Patient visited by Amy Jessica RN. af2 05:35 Patient moved to 11 af2 05:41 Kena Quan,TATIANA is Primary Nurse. cf2 05:41 Patient visited by Kena Quan,TATIANA. cf2 05:41 Patient visited by Kena Quan,TATIANA. cf2 05:46 Bo Flores MD is Attending Physician. pc 06:09 Patient visited by Bo Flores MD. pc 06:37 Patient visited by Kena Quan,TATIANA. cf2 06:38 The patient / caregiver is instructed regarding the plan of care and ED course. Patient cf2 has correct armband on for positive identification. Placed in gown. Bed in low position. Call light in reach. Side rails up X 1. Side rails up X2. Door closed. Noise minimized. Visitors limited. Lights dimmed. Moved to private room. Verbal reassurance given. Warm blanket given. Pillow given. Head of bed elevated. Diet: Patient is NPO. 06:38 MED Profile Sent. cf2 06:38 CBC with Diff Sent. cf2 06:38 Inserted saline lock: 20 gauge in right antecubital area and blood collected. The cf2 patient tolerated the procedure well. No procedures done that require assistance. 06:52 [facility] Payment Agreement was scanned into [employer] and attached to record. hs2 06:56 Patient name changed from Kai\S\Sanjay\S\Vanelvine\S\ to Kai\S\Sanjay\S\Van Elvine. EDMS 06:56 Attending Physician role handed off by Bo Flores MD sd1 06:56 Tana Michael MD is Attending Physician. sd1 06:57 Patient visited by Kena Quan,TATIANA. cf2 06:58 Patient visited by Kena Quan,TATIANA. cf2 06:58 Patient visited by Kena Quan,TATIANA. cf2 08:11 Patient visited by Marie Green PCA. ct3 08:43 Sanjay Zhong is Hospitalizing Provider. sd1 09:19 Admission Orders was scanned into [employer] and attached to record. deg 10:26 Warm blanket given. kr3 Administered Medications: 06:15 Drug: NS 0.9% 1000 ml [sodium chloride 0.9 % intravenous solution] Route: IV; Rate: 100 cf2 mL/hr; Site: left antecubital; 06:15 Drug: morphine 4 mg [morphine 4 mg/mL intravenous cartridge (1 mL)] Route: IVP; Site: cf2 left antecubital; 06:15 Drug: Ondansetron 4 mg [ondansetron HCl 2 mg/mL intravenous solution (2 mL)] Route: cf2 IVP; Site: left antecubital; 06:37 Drug: Piperacillin-Tazobactam 3.375 grams [piperacillin-tazobactam 3.375 gram cf2 intravenous solution] Route: IVPB; Infused Over: 30 mins; Site: left antecubital; 06:57 Drug: morphine 4 mg [morphine 4 mg/mL intravenous cartridge (1 mL)] Route: IVP; Site: cf2 left antecubital; 07:08 Follow up: BP 144 / 78; Pulse 88 bpm; Resp 16 bpm; Temp 96.8 Oral; Pulse Ox 96% RA; kr3 Pain 5/10 Adult; Response: Pain is decreased 08:39 Drug: morphine 4 mg [morphine 4 mg/mL intravenous cartridge (1 mL)] Route: IVP; Site: [facility] right forearm; 09:48 Follow up: BP 150 / 70; Pulse 94 bpm; Resp 16 bpm; Pulse Ox 96% RA; Pain 8/10 Adult kr3 08:41 Drug: NS 0.9% 1000 ml [sodium chloride 0.9 % intravenous solution] Route: IV; Rate: 100 mcp mL/hr; Site: right forearm; 09:47 Follow up: IV Status: Infusion discontinued; IV Intake: 500ml kr3 09:40 Drug: pantoprazole 40 mg [pantoprazole 40 mg intravenous solution] Route: IV; Rate: kr3 bolus; Site: right antecubital; 10:23 Follow up: IV Status: Completed infusion kr3 09:45 Drug: LR 1000 ml [lactated ringers intravenous solution] Route: IV; Rate: 100 mL/hr; kr3 Site: right antecubital; 09:45 Drug: ketorolac 30 mg [ketorolac 30 mg/mL (1 mL) injection solution (1 mL)] Route: IVP; kr3 Site: right antecubital; 10:23 Follow up: Response: Pain is resolved kr3 09:47 Drug: morphine 2 mg [morphine 2 mg/mL intravenous cartridge (1 mL)] Route: IVP; Site: kr3 right antecubital; 10:23 Follow up: Pain 0/10 Adult; Response: Pain is resolved kr3 Intake: 09:47 IV: 500.00ml; Total: 500.00ml. kr3 Order Results: Lab Order: CBC with Diff; SPEC'M 08/12/16 06:33 Test: WHITE BLOOD COUNT; Value: 11.6; Range: 4.0-10.0; Abnormal: Above high normal; Units: K/mm3; Status: F Test: RED BLOOD COUNT; Value: 5.42; Range: 4.30-6.10; Units: M/mm3; Status: F Test: HEMOGLOBIN; Value: 15.7; Range: 14.0-18.0; Units: g/dl; Status: F Test: HEMATOCRIT; Value: 49.2; Range: 42.0-52.0; Units: %; Status: F Test: MEAN CORPUSCULAR VOLUME; Value: 90.7; Range: 80.0-96.0; Units: fl; Status: F Test: MEAN CORPUSCULAR HEMOGLOBIN; Value: 29.0; Range: 27.0-33.0; Units: pg; Status: F Test: MEAN CORPUSCULAR HGB CONC; Value: 31.9; Range: 32.0-36.5; Abnormal: Below low normal; Units: g/dl; Status: F Test: RED CELL DISTRIBUTION WIDTH; Value: 14.7; Range: 11.5-14.5; Abnormal: Above high normal; Units: %; Status: F Test: PLATELET COUNT, AUTOMATED; Value: 223; Range: 150-450; Units: k/mm3; Status: F Test: NEUTROPHILS %; Value: 78.9; Range: 36.0-66.0; Abnormal: Above high normal; Units: %; Status: F Test: LYMPH %; Value: 11.2; Range: 24.0-44.0; Abnormal: Below low normal; Units: %; Status: F Test: MONO %; Value: 5.8; Range: 0.0-5.0; Abnormal: Above high normal; Units: %; Status: F Test: EOS %; Value: 0.8; Range: 0.0-3.0; Units: %; Status: F Test: BASO %; Value: 1.6; Range: 0.0-1.0; Abnormal: Above high normal; Units: %; Status: F Test: LARGE UNSTAINED CELL %; Value: 1.7; Range: 0.0-4.0; Units: %; Status: F Test: NEUTROPHILS #; Value: 9.2; Range: 1.8-7.7; Abnormal: Above high normal; Units: K/mm3; Status: F Test: LYMPH #; Value: 1.5; Range: 1.5-6.5; Units: K/mm3; Status: F Test: MONO #; Value: 0.7; Range: 0.0-0.8; Units: K/mm3; Status: F Test: EOS #; Value: 0.1; Range: 0.0-0.50; Units: K/mm3; Status: F Test: BASO #; Value: 0.2; Range: 0.0-0.2; Units: K/mm3; Status: F Test: LARGE UNSTAINED CELL #; Value: 0.2; Range: 0.0-0.4; Units: K/mm3; Status: F Lab Order: MED Profile; HARDIK 08/12/16 08:18 Test: GLUCOSE, FASTING; Value: 91; Range: 70-105; Units: MG/DL; Status: F Test: BLOOD UREA NITROGEN; Value: 12; Range: 7-18; Units: MG/DL; Status: F Test: CREATININE FOR GFR; Value: 1.24; Range: 0.70-1.30; Units: MG/DL; Status: F Test: GLOMERULAR FILTRATION RATE; Value: > 60.0; Range: >60; Status: F Test: SODIUM LEVEL; Value: 138; Range: 136-145; Units: MEQ/L; Status: F Test: POTASSIUM SERUM; Value: 3.9; Range: 3.5-5.1; Units: MEQ/L; Status: F Test: CHLORIDE LEVEL; Value: 102; Range: 98-107; Units: MEQ/L; Status: F Test: CARBON DIOXIDE LEVEL; Value: 27; Range: 21-32; Units: MEQ/L; Status: F Test: ANION GAP; Value: 9; Range: 8-16; Units: MEQ/L; Status: F Test: CALCIUM LEVEL; Value: 9.0; Range: 8.5-10.1; Units: MG/DL; Status: F Test Note: ; Units are mL/min/1.73 m2 Chronic Kidney Disease Staging per NKF: Stage I & II GFR >=60 Normal to Mildly Decreased Stage III GFR 30-59 Moderately Decreased Stage IV GFR 15-29 Severely Decreased Stage V GFR <15 Very Little GFR Left ESRD GFR <15 on [employer]PER[employer] Outcome: 08:16 CT Study completed. kr3 08:44 Decision to Hospitalize by Provider. sd1 10:26 Admission hand-off: Report called to Siri SIMPSON on Peds. kr3 10:27 Discharge Assessment: patient administered narcotics - yes. Patient was admitted to the [address] or transferred to another facility. The following High Risk Discharge criteria are identified: None. Admitted to Pediatrics accompanied by tech, family with patient, via stretcher, with chart. Condition: stable. Property sent home with patient. 10:45 Patient left the ED. kr3 Signatures: Dispatcher [employer] EDBo Neal MD MD pc Delaney-Rowland, Sarah, MD MD sd1 Sherrell Ponce, Corporate Planning Manager Unit deg Myrna Del Valle, RN RN mcp Esme Teague RN RN kr3 Marie Green, TRAINING AND QUALITY MANAGER TRAINING AND QUALITY MANAGER ct3 Amy Jessica RN RN af2 Gina Holman, Reg Reg hs2 Kena Quan RN RN cf2 Irving Andersen, Reg Reg pm4 Corrections: (The following items were deleted from the chart) 06:23 05:34 PSHx: Shoulder Arthroplasty, Left; af2 pc Chart Complete MTDD
== END 2016-08-12 20:10 | disposition home or self-care (01) ==
LOC: M ED 05:26 → M SDC 09:15 → M PED 10:28 → M SDC 20:10
PROVIDERS: ATTEND Surgery
DX: K35.89 Other acute appendicitis (principal); K21.9 Gastro-esophageal reflux disease without esophagitis
CPT/HCPCS: 36415; 44970; 74177; 80048; 85025; 88304; 96376; 99285; C9113; J0330; J1885; J2250; J2405; J2543; J2710; J3010; Q9963; Q9967